=== PATIENT | female | born 1945 | race Asian ===

== ENCOUNTER 2016-11-24 22:30 | Emergency (ER) | payer MEDICARE, OTHER ==
[~2016-11-24] VITALS: Ht 154.9 cm; Wt 56.8 kg
[~2016-11-24 22:30] MED LIST: GLYB1TAB3 PO; LEVO50 PO; METF-515 PO; SIMV-260 PO
[2016-11-24 22:46] LABS: GLUCOSE COMMENT 1 Doctor Notified; GLUCOSE,POINT OF CARE 131 MG/DL (70-110)
[2016-11-24] MEDS ORDERED: METF500T4 PO (22:54)
[2016-11-24] MEDS ORDERED: CETI-193 PO (22:54)
[2016-11-24] MEDS ORDERED: LEVO75 PO (22:54)
[2016-11-24 23:01] LABS: BASOPHILS % (AUTO) 0.3 % (0.0-2.0); EOSINOPHILS % (AUTO) 1.6 % (1.0-6.0); HEMATOCRIT 41.4 % (36-46); HEMOGLOBIN 13.6 g/dL (12.0-16.0); LYMPHOCYTES # (AUTO) 1.8 K/uL (1.0-4.8); LYMPHOCYTES % (AUTO) 35.4 % (22.0-44.0); MEAN CORPUSCULAR HEMOGLOBIN 30.6 pg (26.0-34.0); MEAN CORPUSCULAR HGB CONC 32.9 G/dL (31.0-37.0); MEAN CORPUSCULAR VOLUME 93 fL (80-100); MONOCYTES # (AUTO) 0.5 K/uL (0.1-1.0); MONOCYTES % (AUTO) 8.9 % (2.0-9.0); NEUTROPHILS # (AUTO) 2.7 K/uL (1.8-7.7); NEUTROPHILS % (AUTO) 53.8 % (40.0-70.0); PLATELET COUNT (AUTO) 233 K/uL (150-450); RED BLOOD CELL COUNT(AUTO) 4.46 MIL/uL (4.00-5.20); RED CELL DISTRIBUTION WIDTH 12.8 % (11.5-14.5); WHITE BLOOD COUNT (AUTO) 5.1 K/uL (4.5-11.0)
[2016-11-24 23:10] LABS: ANION GAP 7 mmol/L (8-16); CALCIUM, TOTAL 9.7 mg/dL (8.8-10.5); CARBON DIOXIDE 31 mmol/L (22-29); CHLORIDE 100 mmol/L (98-107); CREATININE 0.79 mg/dL (0.60-1.30); GLOMERULAR FILTR. RATE CALC > 60 mL/min (>60); POTASSIUM 3.9 mmol/L (3.5-5.1); SODIUM SERUM 138 mmol/L (136-145); UREA NITROGEN, BLOOD 13 mg/dL (7-18)
[2016-11-24 23:16] LABS: ALANINE AMINOTRANSFERASE 46 U/L (12-78); ALBUMIN 4.1 g/dL (3.4-5.0); ASPARTATE AMINOTRANSFERASE 35 U/L (15-37); BILIRUBIN,TOTAL 0.4 mg/dL (0.1-1.0)
[2016-11-25 00:20] VITALS: BP 155/84
== END 2016-11-25 00:23 | disposition home or self-care (01) ==
LOC: EMS 22:31
DX: R20.0 Anesthesia of skin (principal); R20.2 Paresthesia of skin; E11.9 Type 2 diabetes mellitus without complications; E78.00 Pure hypercholesterolemia, unspecified; E03.9 Hypothyroidism, unspecified
CPT/HCPCS: 82962; 93005; 99285

== ENCOUNTER 2023-12-12 19:42 | Inpatient (IN) | payer MEDICARE, OTHER ==
[~2023-12-12] VITALS: Ht 154.9 cm; Wt 54.5 kg
[~2023-12-12 19:42] MED LIST changes: +BISA-151 PO; +CEPH-558 PO; +CETI-193 PO; -GLYB1TAB3 PO; -LEVO50 PO; +LEVO75 PO; +METF-1211 PO; -METF-515 PO; +METR500 PO
[2023-12-12 20:01] LABS: GLUCOMETER DEV NAME(LOC) ER.6; GLUCOSE,POINT OF CARE 336 MG/DL (70-110)
[2023-12-12 20:35] LABS: COVID AG,FIA SOURCE NASAL SWAB
[2023-12-12 20:40] LABS: BASOPHILS % (AUTO) 0.1 % (0.0-2.0); EOSINOPHILS % (AUTO) 0.1 % (1.0-6.0); HEMATOCRIT 35.7 % (36-46); LYMPHOCYTES % (AUTO) 9.7 % (22.0-44.0); MEAN CORPUSCULAR HEMOGLOBIN 32.1 pg (26.0-34.0); MEAN CORPUSCULAR HGB CONC 33.6 G/dL (31.0-37.0); MEAN CORPUSCULAR VOLUME 95 fL (80-100); MONOCYTES # (AUTO) 0.8 K/uL (0.1-1.0); MONOCYTES % (AUTO) 7.8 % (2.0-9.0); NEUTROPHILS # (AUTO) 8.3 K/uL (1.8-7.7); NEUTROPHILS % (AUTO) 82.3 % (40.0-70.0); PLATELET COUNT (AUTO) 176 K/uL (150-450); RED BLOOD CELL COUNT(AUTO) 3.75 MIL/uL (4.00-5.20); RED CELL DISTRIBUTION WIDTH 12.6 % (11.5-14.5); WHITE BLOOD COUNT (AUTO) 10.1 K/uL (4.5-11.0)
[2023-12-12 20:44] LABS: CREATININE 1.45 mg/dL (0.60-1.30); POTASSIUM 4.5 mmol/L (3.5-5.1)
[2023-12-12 20:50] LABS: ALBUMIN 3.2 g/dL (3.4-5.0); BILIRUBIN,TOTAL 0.9 mg/dL (0.1-1.0); TOTAL PROTEIN, SERUM 7.8 g/dL (6.4-8.2)
[2023-12-12 20:54] LABS: TROPONIN I-HIGH SENSITIVITY Less Than 4 ng/L (<51)
[2023-12-12 21:05] LABS: SARS-COV2 (COVID) ANTIGEN,FIA Negative (Negative)
[2023-12-12 21:12] LABS: INFLUENZA TYPE A NEGATIVE FOR TYPE A (NEGATIVE); INFLUENZA TYPE B NEGATIVE FOR TYPE B (NEGATIVE)
[2023-12-12] MEDS ORDERED: 0.9% SODIUM CHLORIDE 10 ML SYRINGE IVP PRN (21:30)
[2023-12-12] MEDS ORDERED: 0.9% SODIUM CHLORIDE 5 ML NEB SOLUTION NEB ONE (21:39)
[2023-12-12 21:45] VITALS: PULSE 91; RESP 16; O2SAT 90
[2023-12-12] MEDS: IPRATROPIUM BROMIDE 0.5 MG/2.5 ML NEB SOLUTION NEB ONE (21:51)
[2023-12-12] MEDS: ALBUTEROL SULFATE 2.5 MG/0.5 ML NEB SOLUTION NEB ONE (21:51)
[2023-12-12 21:55] VITALS: PULSE 91; RESP 16; O2SAT 90
[2023-12-12 22:00] LABS: INR 1.1 (0.9-1.1); LACTIC ACID 1.4 mmol/L (0.4-2.0); PROTHROMBIN TIME 11.1 SEC (9.4-11.6)
[2023-12-12] MEDS: SODIUM CHLORIDE 0.9% 1,650 ML IV ONE (22:03)
[2023-12-12] MEDS: CefTRIAXone 1 GM/DEXTROSE 50 ML IV ONE (22:04)
[2023-12-12 22:10] VITALS: PULSE 94; RESP 18; O2SAT 98
[2023-12-12] MEDS ORDERED: ONDANSETRON HCL 4 MG/2 ML VIAL IVP PRN (22:15)
[2023-12-12] MEDS ORDERED: INSULIN GLARGINE,HUM.REC.ANLOG 100 UNITS/ML SQ SCH (22:15)
[2023-12-12] MEDS ORDERED: DEXTROSE 50%-WATER 25 GM/50 ML SYRINGE IVP PRN (22:15)
[2023-12-12] MEDS: AZITHROMYCIN 500 MG/NS 250 ML IV SCH (22:55)
[2023-12-13] MEDS: HEPARIN SODIUM,PORCINE 5,000 UNITS/ML VIAL SQ SCH (00:33)
[2023-12-13 02:05] VITALS: BP 128/69; PULSE 95; RESP 19; TEMP 100.1
[2023-12-13] MEDS: SODIUM CHLORIDE 0.9% 250 ML IV ONE (02:12)
[2023-12-13] MEDS: BENZONATATE 100 MG CAPSULE PO PRN (03:08)
[2023-12-13] MEDS: INSULIN LISPRO 100 UNITS/ML SQ PRN (05:27)
[2023-12-13] MEDS: ACETAMINOPHEN 325 MG TABLET PO PRN (05:31)
[2023-12-13 06:23] VITALS: BP 103/51; PULSE 79; RESP 19; TEMP 98.5
[2023-12-13] MEDS: LEVOTHYROXINE SODIUM 75 MCG TABLET PO SCH (06:23)
[2023-12-13 06:58] LABS: APPEARANCE,URINE CLEAR (CLEAR); BILIRUBIN,URINE NEGATIVE (NEGATIVE); COLOR,URINE LIGHT YELLOW (YELLOW); GLUCOSE, URINE (UA) >=1000 mg/dL (NEGATIVE); KETONES,URINE TRACE mg/dL (NEGATIVE); LEUKOCYTE ESTERASE ,URINE MODERATE (NEGATIVE); NITRATE,URINE NEGATIVE (NEGATIVE); OCCULT BLOOD,URINE TRACE (NEGATIVE); PH,URINE 5.5 (5.0-8.0); PROTEIN,URINE 30-70 mg/dL (NEGATIVE); SPECIFIC GRAVITIY, URINE 1.031 (1.003-1.030); UROBILINOGEN,URINE <=1.0 mg/dL (<=1.0)
[2023-12-13 06:59] LABS: CREATININE,URINE RANDOM 65.4 mg/dL (30.0-125.0)
[2023-12-13 07:00] LABS: GLUCOMETER DEV NAME(LOC) 6S.2; GLUCOSE,POINT OF CARE 188 MG/DL (70-110)
[2023-12-13 07:24] LABS: BACTERIA,URINE Few /HPF (None Seen); RBC,URINE 0-2 /HPF (0-2); SQUAMOUS EPITHELIAL CELL,UR Few /LPF (None Seen)
[2023-12-13 07:31] LABS: BASOPHILS % (AUTO) 0.2 % (0.0-2.0); EOSINOPHILS % (AUTO) 0 % (1.0-6.0); HEMATOCRIT 29.5 % (36-46); HEMOGLOBIN 10.2 g/dL (12.0-16.0); LYMPHOCYTES # (AUTO) 0.8 K/uL (1.0-4.8); LYMPHOCYTES % (AUTO) 10.9 % (22.0-44.0); MEAN CORPUSCULAR HEMOGLOBIN 32.8 pg (26.0-34.0); MEAN CORPUSCULAR HGB CONC 34.5 G/dL (31.0-37.0); MEAN CORPUSCULAR VOLUME 95 fL (80-100); MONOCYTES # (AUTO) 0.6 K/uL (0.1-1.0); MONOCYTES % (AUTO) 7.9 % (2.0-9.0); NEUTROPHILS # (AUTO) 6.2 K/uL (1.8-7.7); PLATELET COUNT (AUTO) 155 K/uL (150-450); RED BLOOD CELL COUNT(AUTO) 3.11 MIL/uL (4.00-5.20); RED CELL DISTRIBUTION WIDTH 12.6 % (11.5-14.5); WHITE BLOOD COUNT (AUTO) 7.7 K/uL (4.5-11.0)
[2023-12-13 08:01] LABS: CREATININE 1.17 mg/dL (0.60-1.30)
[2023-12-13 08:43] VITALS: BP 106/58; PULSE 70; RESP 18; TEMP 98.2
[2023-12-13] MEDS: BISACODYL 5 MG EC TABLET PO SCH (09:00)
[2023-12-13] MEDS: CETIRIZINE HCL 10 MG TABLET PO SCH (09:17)
[2023-12-13 11:16] LABS: GLUCOMETER DEV NAME(LOC) 6N.2B; GLUCOSE,POINT OF CARE 192 MG/DL (70-110)
[2023-12-13 16:22] VITALS: BP 106/54; PULSE 72; RESP 18; TEMP 97.5
[2023-12-13 18:11] LABS: GLUCOMETER DEV NAME(LOC) 6N.2B; GLUCOSE,POINT OF CARE 169 MG/DL (70-110)
[2023-12-13 21:00] VITALS: BP 101/50; PULSE 71; RESP 18; TEMP 98.3
[2023-12-13] MEDS: SIMVASTATIN 20 MG TABLET PO SCH (21:00)
[2023-12-13] MEDS: INSULIN GLARGINE,HUM.REC.ANLOG 100 UNITS/ML SQ SCH (21:05)
[2023-12-13] MEDS ORDERED: SODIUM CHLORIDE 0.9% 500 ML IV ONE (21:42)
[2023-12-13] MEDS: CefTRIAXone 1 GM/DEXTROSE 50 ML IV SCH (21:54)
[2023-12-14 03:58] VITALS: BP 102/59; PULSE 65; RESP 19; TEMP 98.5
[2023-12-14 08:40] VITALS: BP 127/67; PULSE 70; RESP 18; TEMP 97.6
[2023-12-14] MEDS ORDERED: SIMV-46 PO (14:49)
[2023-12-14] MEDS ORDERED: EMPA10TA3 PO (14:49)
[2023-12-14] MEDS ORDERED: INSU3INS3 SQ (14:49)
[2023-12-14 15:46] LABS: GLUCOMETER DEV NAME(LOC) 6S.1C; GLUCOSE,POINT OF CARE 97 MG/DL (70-110)
[2023-12-14 15:55] LABS: GLUCOMETER DEV NAME(LOC) 6N.2B; GLUCOSE,POINT OF CARE 202 MG/DL (70-110)
[2023-12-14 16:10] VITALS: BP 120/65; PULSE 70; RESP 18; TEMP 99.1
[2023-12-14] MEDS: GuaiFENesin/CODEINE [SUGAR FREE] 200-20MG/10 ML SYRUP UDCUP PO PRN (16:32)
[2023-12-14 16:55] LABS: GLUCOMETER DEV NAME(LOC) 4E.2; GLUCOSE,POINT OF CARE 181 MG/DL (70-110)
[2023-12-14 19:52] VITALS: BP 106/54; PULSE 76; RESP 18; TEMP 98.1
[2023-12-14] MEDS: BENZOCAINE/MENTHOL LOZENGE PO PRN (19:57)
[2023-12-15 05:21] LABS: GLUCOMETER DEV NAME(LOC) 6S.1C; GLUCOSE,POINT OF CARE 133 MG/DL (70-110)
[2023-12-15 06:21] LABS: GLUCOMETER DEV NAME(LOC) 6N.2B; GLUCOSE,POINT OF CARE 137 MG/DL (70-110)
[2023-12-15 06:36] VITALS: BP 110/60; PULSE 64; RESP 17; TEMP 98
[2023-12-15 07:51] LABS: GLUCOMETER DEV NAME(LOC) 4E.2; GLUCOSE,POINT OF CARE 267 MG/DL (70-110)
[2023-12-15 10:00] VITALS: BP 117/68; PULSE 72; RESP 18; TEMP 97.9
[2023-12-15] MEDS ORDERED: AMOX1TAB16 PO (14:45)
[2023-12-15] MEDS ORDERED: BENZ-227 PO (14:45)
[2023-12-15] MEDS ORDERED: CEPACLZ PO (14:45)
[2023-12-15] MEDS ORDERED: GUAIF10 PO (14:45)
[2023-12-15 15:31] LABS: GLUCOMETER DEV NAME(LOC) 4E.2; GLUCOSE,POINT OF CARE 216 MG/DL (70-110)
== END 2023-12-15 17:27 | disposition home or self-care (01) | DRG 871 ==
LOC: EMS 19:44 → 6N 12-13 00:16
PROVIDERS: ADMIT Internal Medicine; ATTEND Internal Medicine
DX: A41.9 Sepsis, unspecified organism (principal); J18.9 Pneumonia, unspecified organism; J96.01 Acute respiratory failure with hypoxia; N17.9 Acute kidney failure, unspecified; E11.65 Type 2 diabetes mellitus with hyperglycemia; E78.00 Pure hypercholesterolemia, unspecified; E03.9 Hypothyroidism, unspecified; E11.22 Type 2 diabetes mellitus with diabetic chronic kidney disease; I12.9 Hypertensive chronic kidney disease with stage 1 through stage 4 chronic kidney disease, or unspecified chronic kidney disease; N18.2 Chronic kidney disease, stage 2 (mild); Z20.822 Contact with and (suspected) exposure to COVID-19; Z79.899 Other long term (current) drug therapy
CPT/HCPCS: 71045; 80048; 80053; 81001; 82570; 82962; 83605; 83735; 83880; 84145; 84300; 84484; 85025; 85610; 87040; 87086; 87186; 87804; 93005; 94640; 99291; J0456; J0696; J1644; J1815; J7030; J7040; J7050; 36415-L1; 36415-TC; J7613